=== PATIENT | male | born 1965 | race Caucasian/White ===

== ENCOUNTER 2018-09-13 07:38 | Day surgery (SDC) | payer OTHER ==
[~2018-09-13] VITALS: Ht 170.2 cm; Wt 102.5 kg
[~2018-09-13 07:38] MED LIST: ACET1TAB40 PO; AMLO-147 PO; BENA20TA4 PO; HYDR25TA6 PO
[2018-09-13 08:50] VITALS: Ht 170.2 cm; Wt 102.5 kg
[2018-09-13] MEDS ORDERED: METOPROLOL (08:57)
[2018-09-13] MEDS ORDERED: ASPI-903 PO (08:57)
[2018-09-13] MEDS ORDERED: LABETALOL HCL 20MG INJ ONE (09:13)
[2018-09-13] MEDS ORDERED: hydrALAzine 20 MG INJ ONE (09:13)
[2018-09-13] MEDS ORDERED: PROPOFOL 20 ML ONE ×2 (09:13)
[2018-09-13 09:16] VITALS: BP 201/117; PULSE 90; RESP 22
--- NOTE | 2018-09-13 09:30 | PREAC ---
Date/Time of Note Date/Time of Note DATE: 09/13/18 TIME: 09:29 Anesthesia Eval and Record Evaluation Time Pre-Procedure Interview DATE: 09/13/18 TIME: 09:29 Age 53 Sex male NPO: 8 hrs Preoperative diagnosis screening Planned procedure Colonoscopy Past Medical History Past Medical History: Includes Cardio: HTN, Dyslipidemia GI: Obesity Surgery & Anesthesia Issues No known issue Meds Anticoagulation: No Beta Mady within 24 hr: Yes Reported Medications Aspirin* (Aspirin* Chew) 81 Mg Tab.chew, 81 MG PO DAILY, TAB.CHEW 09/13/18 [Metoprolol] No Conflict Check 09/13/18 Hydrochlorothiazide* (Hydrochlorothiazide*) 25 Mg Tab, 25 MG PO DAILY, TAB 07/09/14 Discontinued Reported Medications Benazepril Hcl* (Benazepril Hcl*) 20 Mg Tablet, 20 MG PO BID, TAB 07/09/14 Amlodipine Besylate* (Amlodipine Besylate*) 10 Mg Tablet, 10 MG PO DAILY, TAB 07/09/14 Acetaminophen-Codeine* (Acetaminophen-Cod #3*) 300-30 Mg Tab, 1 TAB PO Q4H PRN for PAIN, TAB 07/09/14 Meds reviewed: Yes Allergies Coded Allergies: No Known Allergy (Unverified , 07/09/14) Allergies Reviewed: Yes Labs/Studies Labs Reviewed: Reviewed by anesthesiologist test: N/A Studies: ECG (n/a), CXR (n/a) Pre-procedure Exam Last vitals Vital Signs Date Temp Pulse Resp B/P (MAP) Pulse Ox O2 O2 Flow FiO2 Time Delivery Rate 09/13/18 98.9 90 22 201/117 99 High Flow 09:16 (145) Airway: Adequate mouth opening, Adequate thyromental dist Mallampati: Mallampati II Teeth: Normal Lung: Normal Heart: Normal ASA Physical Status ASA physical status: 3 Emergency: None Planned Anesthetic General/MAC: MAC Planned Pain Management Parenteral pain med Pre-operative Attestations Prior to commencing anesthesia and surgery, the patient was re-evaluated, there was verification of: *The patient's identity *The results of appropriate recent lab work and preoperative vital signs *The above evaluation not changing prior to induction *Anesthetic plan, risk benefits, alternative and complications discussed with patient/family; questions answered; patient/family understands, accepts and wishes to proceed. MARI MEJIA MD Sep 13, 2018 09:30
--- NOTE | 2018-09-13 09:31 | PAC ---
Date/Time of Note Date/Time of Note DATE: 09/13/18 TIME: 09:31 Post-Anesthesia Notes Post-Anesthesia Note Last documented vital signs Vital Signs Date Temp Pulse Resp B/P (MAP) Pulse Ox O2 O2 Flow FiO2 Time Delivery Rate 09/13/18 98.9 90 22 201/117 99 High Flow 09:30 (145) Activity: WNL Respiratory function: WNL Cardiovascular function: WNL Mental status: Baseline Pain reasonably controlled: Yes Hydration appropriate: Yes Nausea/Vomiting absent: Yes MARI MEJIA MD Sep 13, 2018 09:31
[2018-09-13 09:58] VITALS: BP 149/87; PULSE 80; RESP 18
[2018-09-13] MEDS ORDERED: MIDAZOLAM 1 MG/ML 2 ML INJ ONE ×3 (10:09→10:10)
[2018-09-13] MEDS ORDERED: FENTAnyl 50 MCG/ML VIAL ONE (10:10)
== END 2018-09-13 11:20 | disposition home or self-care (01) ==
LOC: GIL 07:38
PROVIDERS: ATTEND Internal Medicine Gastroenterology
DX: Z12.11 Encounter for screening for malignant neoplasm of colon (principal); D12.2 Benign neoplasm of ascending colon; K64.4 Residual hemorrhoidal skin tags; D12.8 Benign neoplasm of rectum; I10 Essential (primary) hypertension; E78.5 Hyperlipidemia, unspecified
CPT/HCPCS: 45380; 88305; J0360; J2250; J3010; Z7610